=== PATIENT | female | born 1980 | race Hispanic/Latino ===

== ENCOUNTER 2018-08-09 08:39 | Emergency (ER) | payer BC ==
[2018-08-09 09:01] VITALS: BMI 23.0
[2018-08-09] MEDS ORDERED: DiphenhydrAMINE 50 mg/ml Inj IVP STA (09:35)
[2018-08-09 10:10] LABS: EOS % 0.1 % (0.0-4.0); HEMOGLOBIN 12.4 g/dL (12.0-16.0); LYMPH # 0.4 K/uL (1.0-4.3); LYMPH % 2.2 % (20.0-40.0); MEAN CORPUSCULAR HEMOGLOBIN 29.2 pg (27.0-31.0); MEAN CORPUSCULAR HGB CONC 33.2 g/dL (33.0-37.0); MONO # 0.7 K/uL (0.0-0.8); MONO % 3.8 % (0.0-10.0); NEUT % 93.9 % (50.0-75.0); NRBC % 0.3 % (0.0-0.0); PLATELET COUNT 203 K/uL (130-400); RBC 4.23 Mil/uL (3.80-5.20); RED CELL DISTRIBUTION WIDTH 14.3 % (11.5-14.5); WHITE BLOOD COUNT 18.1 K/uL (4.8-10.8)
[2018-08-09 10:20] LABS: ALB/GLOB RATIO 1.1 (1.0-2.1); ALBUMIN 3.6 g/dL (3.5-5.0); ALT/SGPT 24 U/L (9-52); AST/SGOT 26 U/L (14-36); BLOOD UREA NITROGEN 10 mg/dl (7-17); CALCIUM 9.4 mg/dL (8.4-10.2); GFR NON-AFRICAN AMERICAN > 60
--- NOTE | 2018-08-09 10:42 | ED PDOC ---
HPI: Allergic Reaction Time Seen by Provider: 08/09/18 08:40 Chief Complaint (Nursing): Allergic Reaction Chief Complaint (Provider): allergic reaction History Per: Patient History/Exam Limitations: no limitations Onset/Duration Of Symptoms: Days (since 9 pm last night) Additional Complaint(s): patient was started on lamictal for psychiatric reasons for 4 days but then got the flu and went off of at as per her psychiatrist for a week or so, and then restarted it yesterday and developed rash, itchy, warm, diffuse. no new meds/lotions/detergants/food/history of allergies. no fever/vomting/respiratory distress or throat pain. Past Medical History Vital Signs: Last Vital Signs Temp 102.8 F H 08/09/18 09:01 Pulse 87 08/09/18 09:01 Resp 18 08/09/18 09:01 BP 105/69 08/09/18 09:01 Pulse Ox 100 08/09/18 09:01 - Medical History PMH: Anxiety, Bipolar Disorder, Depression - Surgical History Surgical History: No Surg Hx - Family History Family History: States: Unknown Family Hx - Social History Current smoker - smoking cessation education provided: No Alcohol: None Drugs: Denies - Home Medications Home Medications: Ambulatory Orders Medication Instructions Recorded DiphenhydrAMINE [Benadryl] 25 mg PO Q6H PRN #5 cap 08/09/18 predniSONE [Prednisone] 40 mg PO DAILY #8 tab 08/09/18 - Allergies Allergies/Adverse Reactions: Allergies Allergy/AdvReac Type Severity Reaction Status Date / Time No Known Allergies Allergy Verified 08/09/18 09:15 Physical Exam - Reviewed Nursing Documentation Reviewed: Yes Vital Signs Reviewed: Yes - Physical Exam Appears: Positive for: Well, Non-toxic, No Acute Distress Head Exam: Positive for: ATRAUMATIC, NORMAL INSPECTION, NORMOCEPHALIC Skin: Positive for: Normal Color, Warm, Rash (diffuse red, urticarial rash throughout body on face, chest, extremities ) Eye Exam: Positive for: EOMI, Normal appearance, PERRL ENT: Positive for: Normal ENT Inspection Neck: Positive for: Normal, Painless ROM Cardiovascular/Chest: Positive for: Regular Rate, Rhythm Respiratory: Positive for: CNT, Normal Breath Sounds Gastrointestinal/Abdominal: Positive for: Normal Exam, Soft Back: Positive for: Normal Inspection Extremity: Positive for: Normal ROM Neurologic/Psych: Positive for: Alert, Oriented - Laboratory Results Result Diagrams: 08/09/18 09:50 08/09/18 09:50 Lab Results: Total Bilirubin 0.5 mg/dl (0.2-1.3) 08/09/18 09:50 AST 26 U/L (14-36) 08/09/18 09:50 ALT 24 U/L (9-52) 08/09/18 09:50 Alkaline Phosphatase 34 U/L (38-126) L 08/09/18 09:50 Total Protein 6.9 G/DL (6.3-8.2) 08/09/18 09:50 Albumin 3.6 g/dL (3.5-5.0) 08/09/18 09:50 Globulin 3.3 gm/dL (2.2-3.9) 08/09/18 09:50 Albumin/Globulin Ratio 1.1 (1.0-2.1) 08/09/18 09:50 - ECG O2 Sat by Pulse Oximetry: 100 (RA) Pulse Ox Interpretation: Normal - Progress ED Course And Treament: labs ordered. patient given pepcid, solumedrol, benadryl. 1410 Labs reviewed, patient with elevated white blood cell count. She denies any abdominal pain, urinary symptoms. Patient with low grade fever of 100.2; tylenol and IV fluids ordered Disposition - Clinical Impression Clinical Impression: Allergic reaction, Fever - Patient ED Disposition Is Patient to be Admitted: No Counseled Patient/Family Regarding: Studies Performed, Diagnosis, Need For Followup - Disposition Disposition: Routine/Home Disposition Time: 15:00 Condition: IMPROVED Additional Instructions: follow up with your primary doctor in 1-2 days for reevaluation return to the ED with any worsening or concerning symptoms Prescriptions: DiphenhydrAMINE [Benadryl] 25 mg PO Q6H PRN #5 cap PRN Reason: Allergy Symptoms predniSONE [Prednisone] 40 mg PO DAILY #8 tab Instructions: Drug Allergy Forms: [employer] (Amharic) Medical Decision Making Medical Decision Making: pt with allergic reaction/rash, possible reaction to medication lamictal pt without respiratory issues treated with benadryl steroids and reevaluated pt also noted to have fever, but no urinary symptoms no cough no congestion rash imrpoved and pt felt better states she wants to go home given prescriptions pt instructed she must follow up as outpt 1-2 days
[2018-08-09 11:28] LABS: BANDS 1 % (0-2); EOSINOPHIL 1 % (0-7); LYMPHOCYTE 3 % (20-50); MONOCYTE 4 % (0-10); NEUTROPHIL 91 % (42-75); TOTAL CELLS COUNTED 100
[2018-08-09 11:29] LABS: PLATELET ESTIMATE NORMAL (NORMAL)
[2018-08-09 13:43] VITALS: PULSE 78
[2018-08-09] MEDS ORDERED: Sodium Chloride 0.9% 1,000 ML IV STA (14:08)
[2018-08-09 15:16] VITALS: BP 132/71; RESP 19; TEMP 98.5
[2018-08-12 10:41] VITALS: O2SAT 100
== END 2018-08-09 15:27 | disposition home or self-care (01) ==
LOC: H.ER 08:39
DX: T78.40XA Allergy, unspecified, initial encounter (principal); R50.9 Fever, unspecified; F31.9 Bipolar disorder, unspecified; F41.9 Anxiety disorder, unspecified
CPT/HCPCS: 80053; 81025; 85025; 87040; 96374; 96375; 99284; J1200; J2930; J7030